=== PATIENT | female | born 1980 | race Hispanic/Latino ===

== ENCOUNTER 2016-08-04 12:02 | Outpatient (CLI) | payer BC ==
[2016-08-04 12:27] LABS: Hematocrit 30.7 % (30.3-42.9); Hemoglobin 9.3 gm/dl (10.1-14.3); Mean Corpuscular HGB Conc 30 % (30-34); Platelet Count 267 K/mm3 (140-440); Red Cell Distribution Width 17.8 % (13.2-15.2); Reticulocyte % 1.38 % (0.78-2.58); White Blood Count 7.9 K/mm3 (4.5-11.0)
[2016-08-04 12:45] LABS: Mean Corpuscular Hemoglobin 20 pg (28-32); Mean Corpuscular Volume 65 fl (79-97)
[2016-08-04 12:47] LABS: Alanine Aminotransferase 7 units/L (7-56); Albumin/Globulin Ratio 1.2 %; Alkaline Phosphatase 70 units/L (35-129); Anion Gap 18 mmol/L; BUN/Creatinine Ratio 13.75; Blood Urea Nitrogen 11 mg/dL (7-17); Calcium 8.8 mg/dL (8.4-10.2); Carbon Dioxide 21 mmol/L (22-30); Chloride 104.5 mmol/L (98-107); Glucose 89 mg/dL (65-100); Iron 18 ug/dL (37-170); Potassium 4.2 mmol/L (3.6-5.0); Sodium 139 mmol/L (137-145); Total Protein 7.3 g/dL (6.3-8.2)
== END 2016-08-04 12:03 | disposition home or self-care (01) ==
LOC: LAB 12:02
PROVIDERS: ATTEND Internal Medicine Hematology & Oncology
DX: D64.9 Anemia, unspecified (principal)
CPT/HCPCS: 36415; 80053; 82607; 82728; 82747; 83550; 85027; 85045

== ENCOUNTER 2016-09-05 10:47 | Outpatient (CLI) | payer BC ==
[2016-09-05 11:18] LABS: Hematocrit 32.7 % (30.3-42.9); Hemoglobin 9.9 gm/dl (10.1-14.3); Mean Corpuscular HGB Conc 30 % (30-34); Platelet Count 297 K/mm3 (140-440); Red Blood Count 4.89 M/mm3 (3.65-5.03); Red Cell Distribution Width 19.1 % (13.2-15.2); Reticulocyte % 1.45 % (0.78-2.58); White Blood Count 6.5 K/mm3 (4.5-11.0)
[2016-09-05 11:25] LABS: Mean Corpuscular Hemoglobin 20 pg (28-32); Mean Corpuscular Volume 67 fl (79-97)
== END 2016-09-05 10:48 | disposition home or self-care (01) ==
LOC: LAB 10:47
PROVIDERS: ATTEND Internal Medicine Hematology & Oncology
DX: D50.9 Iron deficiency anemia, unspecified (principal)
CPT/HCPCS: 36415; 82607; 82728; 83550; 85027; 85045